=== PATIENT | male | born 1955 | race Caucasian/White ===

== ENCOUNTER 2017-01-21 17:12 | Emergency (ER) | payer OTHER | END 2017-01-21 18:22 | disposition home or self-care (01) | LOC: ER 17:12 | DX: G31.9 Degenerative disease of nervous system, unspecified (principal); G62.9 Polyneuropathy, unspecified; J32.9 Chronic sinusitis, unspecified; F17.210 Nicotine dependence, cigarettes, uncomplicated; Z79.899 Other long term (current) drug therapy; Z79.82 Long term (current) use of aspirin; Z79.84 Long term (current) use of oral hypoglycemic drugs | CPT/HCPCS: 70450; 93005; 99284-25 ==